=== PATIENT | female | born 1995 | race Two or more races ===

== ENCOUNTER 2024-07-27 21:50 | Emergency (ER) | payer MEDICAID, SELFPAY ==
--- NOTE | 2024-07-27 22:09 | PC.NURSE ---
PATIENT AND MOTHER STATED THAT IT WAS TOO BUSY IN THE ER TODAY AND THAT SHE WILL COME BACK TOMORROW MORNING. PATIENT DOES NOT APPEAR TO BE IN DISTRESS, AMBULATING WITHOUT DIFFICULTY, AND ACCOMPANIED BY MOTHER. PATIENT SEEN WALKING OUT OF ER.
--- NOTE | 2024-07-27 22:41 | PC.NURSE ---
pt did not answer when name was called and was not found outside.
== END 2024-07-27 22:41 | disposition left against medical advice (07) ==
PROVIDERS: Emergency Provider Emergency Medicine
DX: Z53.21 Procedure and treatment not carried out due to patient leaving prior to being seen by health care provider (principal)

== ENCOUNTER 2024-12-08 14:46 | Emergency (ER) | payer MEDICAID, SELFPAY ==
[2024-12-08 14:51] VITALS: BP 151/93; PULSE 90; RESP 18; TEMP 36.8; O2SAT 95
[2024-12-08 15:38] LABS: HCG Qualitative,Urine Negative
--- NOTE | 2024-12-08 15:53 | EDNOTE_ITS ---
ED OB Contraction Preg RMI/HPI General Chief complaint: Vaginal Bleeding Stated complaint: VAG BLEEDING Time Seen by Provider: 12/08/24 14:50 Arrival date/time: 12/08/24 14:46 29-year-old female with no significant medical problems presents to the emergency department for complaints of vaginal bleeding. Patient believes she may have scratched herself when she was wiping after using the restroom. Limitations: no limitations Related Data Previous Rx's ?Medication ?Instructions ?Recorded ibuprofen 800 mg tablet 800 mg PO Q6H PRN pain #30 t abs 04/19/19 hydroxyzine HCl 25 mg tablet 25 mg PO QID PRN Itching and/or 08/07/21 rash #30 tabs prednisone 20 mg tablet See Rx Instructions .Route 1 10/08/20 .COMPLEX #8 tabs ibuprofen 800 mg tablet 800 mg PO TID PRN pain #30 t abs 01/16/22 ondansetron 4 mg disintegrating 4 mg PO Q6H PRN nausea and 01/16/22 tablet vomiting #14 tabs dicyclomine 20 mg tablet 20 mg PO TID PRN abdominal p ain 11/02/23 #14 tabs Allergies Allergy/AdvReac Type Severity Reaction Status Date / Time No Known Allergies Allergy Verified 08/07/21 11:38 Review of Systems Review of Systems Systems Reviewed: All systems reviewed, normal except as documented Constitutional Constitutional: Reports system reviewed and no additional complaints, except as documented, Denies fever(s) and Denies headache(s) Eyes Eyes: Reports system reviewed and no additional complaints, except as documented and Denies blurry vision ENT Ears, Nose, Mouth, and Throat: Reports system reviewed and no additional complaints, except as documented, Denies headache(s), Denies nasal congestion and Denies nasal discharge Cardiovascular Cardiovascular: Reports system reviewed and no additional complaints, except as documented, Denies chest pain and Denies dyspnea Respiratory Respiratory: Reports system reviewed and no additional complaints, except as documented, Denies chest congestion, Denies cough and Denies dyspnea Gastrointestinal Gastrointestinal: Reports system reviewed and no additional complaints, except as documented and Denies abdominal pain Genitourinary Genitourinary: Reports system reviewed and no additional complaints, except as documented and Reports abnormal vaginal bleeding Integumentary/Breasts Skin/Breast: Reports system reviewed and no additional complaints, except as documented and Denies rash Neurologic Neurologic: Reports system reviewed and no additional complaints, except as documented, Reports as per HPI and Denies headache(s) Past Medical History Past Medical History CARDIAC: Positive Hypertension; Negative Cardiac Disorders or Congestive Heart Failure RESPIRATORY: Negative Chronic Obstructive Pulmonary Disease (COPD) or Asthma GENITOURINARY: Negative Renal Disease ENDOCRINE: Positive Diabetes Mellitus Type 2; Negative Diabetes Mellitus Type 1 HEMATOLOGIC: Negative Sickle Cell Disease Family History FAMILY HISTORY: Positive Family Cardiac Disorders Social History SMOKING STATUS: Never smoker ED Exam General Limitations: Present no limitations General appearance: Present alert and in no apparent distress Head Head exam: Present atraumatic Eye Eye exam: Present normal appearance, PERRL and EOMI ENT ENT exam: Present normal exam, normal oropharynx and mucous membranes moist Neck Neck exam: Present normal inspection, full ROM and trachea midline Chest Chest inspection: Present normal inspection and symmetric chest wall rise Respiratory Respiratory exam: Present normal lung sounds bilaterally Cardiovascular Cardiovascular exam: Present regular rate, normal rhythm and normal heart sounds Abdominal Exam Abdominal exam: Present soft and normal bowel sounds; Absent distention, tenderness, guarding, rebound or rigidity Extremities Exam Extremities exam: Present normal inspection and full ROM Back Exam Back exam: Present normal inspection and full ROM Neurological Exam Neurological exam: Present alert, oriented X3 and CN II-XII intact Psychiatric Psychiatric exam: Present normal affect and normal mood Skin Skin exam: Present warm, dry, intact and normal color Course Quality Measures none Orders Category Date Time Status HCG Qualitative,Urine Stat Lab 12/08/24 15:19 Completed Vital Signs Vital signs: Vital Signs Temperature 98.2 F 12/08/24 14:51 Pulse Rate 90 12/08/24 14:51 Respiratory Rate 18 12/08/24 14:51 Blood Pressure 151/93 H 12/08/24 14:51 Pulse Oximetry (%) 95 12/08/24 14:51 Oxygen Delivery Method Room Air 12/08/24 14:51 O2 saturation 95% on room air WNL Vaginal Bleeding MDM Narrative MDM Narrative: 29-year-old female with no significant medical problems presents to the emergency department for complaints of vaginal bleeding. Patient believes she may have scratched herself when she was wiping after using the restroom. With a female hyperion analyst with the utmost respect to examine the patient's vaginal region patient appears to have no active bleeding no lacerations. Patient appears to be on her period Patient checked for which came back negative Patient discharged home in no distress to follow-up with primary care doctor in the next 24 to 48 hours and for any worsening symptoms to return to the ER immediately Patient data External records reviewed:: [facility] previous records Clinical information provided by:: patient Social determinants that could affect healthcare access:: none Patient has the following chronic illnesses:: None How is presenting disease/condition affected by chronic disease/condition?: no chronic disease Evaluation data The following diagnostics were reviewed and interpreted by me:: lab results Lab and/or radiology exams considered but not ordered:: Ordered Interpretation Summary: Reviewed by me Medications / Prescriptions Medications or Prescriptions considered but not ordered:: No meds Medication administrations:: No meds Consultations Consultation(s) initiated? (list below): No Diagnosis Vaginal Bleeding Differential Diagnosis: missed and threatened Most likely diagnosis given after review of the tests above:: Dysfunctional uterine bleeding Admission Indicated Admission indicated?: not indicated Admission Request Was there a request for admission?: No Disposition Plan Disposition Plan: Discharge Discharge Attestation Discharge Attestation: The patient and all family members were given an opportunity to ask questions and understood the discharge instructions. Discharge instructions specifically effects, indications for sooner follow up or return to the emergency department, and the expected course of current diagnosis. Patient condition: Stable Discharge Plan Plan Patient Disposition: HOME (Self Care) Disposition Comment: Stable Prescriptions/Referrals Prescriptions/Med Rec: No Action ibuprofen 800 mg tablet 800 mg PO Q6H PRN (Reason: pain) Qty: 30 0RF hydroxyzine HCl 25 mg tablet 25 mg PO QID PRN (Reason: Itching and/or rash) Qty: 30 0RF prednisone 20 mg tablet See Rx Instructions .ROUTE .COMPLEX Qty: 8 0RF Rx Instructions: 2 tabs (40mg) PO QAM x 3 days, then 1 tab (20mg) PO QAM x 2 days ibuprofen 800 mg tablet 800 mg PO TID PRN (Reason: pain) Qty: 30 0RF ondansetron 4 mg tablet,disintegrating 4 mg PO Q6H PRN (Reason: nausea and vomiting) Qty: 14 0RF dicyclomine 20 mg tablet 20 mg PO TID PRN (Reason: abdominal pain) Qty: 14 0RF Referrals: Amish Perez FNP [Primary Care Provider] - In 1 week Problem List Clinical Impression: Vaginal bleeding Patient/Caregiver Discharge Instructions Additional Instructions: Please follow up with your primary care doctor in the next 24-48hrs for any worsening symptoms return here immediately Print Language: Kinyarwanda Stand Alone Forms: Ana Award Info., Patient Portal Info Letter PA/PRODUCT SUPPORT MANAGER Supervising Physician PA/PRODUCT SUPPORT MANAGER Supervising Physician: Dr [email or web address]
== END 2024-12-08 16:30 | disposition home or self-care (01) ==
PROVIDERS: Nurse Practitioner Primary Care; Emergency Provider Emergency Medicine
DX: N93.8 Other specified abnormal uterine and vaginal bleeding (principal)
CPT/HCPCS: 81025; 99283

== ENCOUNTER 2025-03-23 14:21 | Emergency (ER) | payer MEDICAID, SELFPAY ==
[2025-03-23 15:49] VITALS: BP 146/83; PULSE 68; RESP 18; TEMP 36.8; O2SAT 98
--- NOTE | 2025-03-23 16:04 | PD.EDRME ---
Rapid Medical Screening Exam RME Arrival date/time: 03/23/25 14:21 Chief Complaint: Chest Pain Vital signs: Vital Signs Temperature 98.2 F 03/23/25 15:49 Pulse Rate 68 03/23/25 15:49 Respiratory Rate 18 03/23/25 15:49 Blood Pressure 146/83 H 03/23/25 15:49 Pulse Oximetry (%) 98 03/23/25 15:49 Oxygen Delivery Method Room Air 03/23/25 15:49 Pulse ox is 98% room air Vital signs reviewed by provider: Yes RME Narrative: 29-year-old female presents to the ED with a complaint of chest pain that began 2 days ago. Patient tells me chest pain radiates from left of her sternum down to her abdomen.
--- NOTE | 2025-03-23 16:06 | XR_ITS ---
Examination: PA lateral chest 2 views TECHNIQUE: Upright PA lateral chest 2 views Date and time: March 23, 2025 1618 hours Comparison October 24, 2022 INDICATIONS: Chest pain beginning 3 days ago. FINDINGS: Normal heart size Suspicious for early pneumonia right base obscuring detail right hemidiaphragm Left lung clear IMPRESSION: Suspicious for early right base pneumonia
--- NOTE | 2025-03-23 16:06 | EKG_ITS ---
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
[2025-03-23 16:54] LABS: Basophils # (Auto) 0.1 Thou/mm3 (0.0-0.2); Basophils % (Auto) 0 % (0-2.5); Eosinophils # (Auto) 0.3 Thou/mm3 (0.0-0.5); Eosinophils % (Auto) 2 % (0-10); Hematocrit 39.9 % (36.0-46.0); Hemoglobin 13.6 g/dL (12.0-16.0); Immature Granulocytes Auto 0.06 Thou/mm3 (0.00-0.00); Lymphocytes # (Auto) 3.5 Thou/mm3 (1.0-4.8); Lymphocytes % (Auto) 22 % (10-50); Mean Corpuscular HGB Conc 34.1 g/dl (31.0-37.0); Mean Corpuscular Hemoglobin 28.7 pg (25.0-35.0); Mean Corpuscular Volume 84 fL (80-100); Monocytes # (Auto) 1.1 Thou/mm3 (0.0-0.8); Monocytes % (Auto) 7 % (0-12); Neutrophils # (Auto) 11.1 Thou/mm3 (1.8-7.7); Neutrophils % (Auto) 69 % (37-80); Nucleated Red Blood Cell # 0.00 Thou/mm3 (0.00-0.00); Nucleated Red Blood Cell % 0 /100 WBC (0); Platelet Count 90 Thou/mm3 (140-440); RDW Standard Deviation 38.1 fL (36.4-46.3); Red Blood Count 4.74 Miln/mm3 (4.00-5.20); White Blood Count 16.0 Thou/mm3 (3.6-11.0)
[2025-03-23 17:13] LABS: B-Type Natriuretic Peptide < 20 pg/mL (0-100)
[2025-03-23 17:18] LABS: Collection Type, Urine Clean Catch
[2025-03-23 17:27] LABS: Alanine Aminotransferase 9 U/L (10-49); Albumin, Serum 4.9 gm/dL (3.5-5.0); Albumin/Globulin Ratio 1.6 (1.2-2.2); Alkaline Phosphatase 105 U/L (46-116); Anion Gap 9 (7-16); Aspartate Amino Transferase 13 U/L (0-34); BUN/Creatinine Ratio 8 Ratio (12-20); Bilirubin,Total 0.4 mg/dL (0.3-1.2); Blood Urea Nitrogen 6 mg/dL (9-23); Calcium 10.6 mg/dL (8.3-10.6); Calcium (Corrected) 10.6 mg/dL (8.5-10.1); Carbon Dioxide 28.2 mMol/L (20.0-31.0); Chloride 102 mMol/L (98-107); Creatinine (Component) 0.8 mg/dL (0.6-1.3); Globulin 3.0 gm/dL (2.3-3.5); Glucose 90 mg/dL (74-106); LDH (Lactate Dehydrogenase) 165 U/L (120-246); Magnesium 1.5 mg/dL (1.6-2.6); Osmolality,Calculated 275 (275-295); Potassium 3.9 mMol/L (3.4-5.1); Sodium 139 mMol/L (136-145); Total Protein 7.9 gm/dL (5.7-8.2); Troponin I < 0.020 ng/mL (0.0-0.045); eGFR > 60 See Note
[2025-03-23 17:44] LABS: Bacteria,Urine 3+; Bilirubin,Urine Negative (Negative); Blood,Urine Negative (Negative); Clarity,Urine Turbid (Clear/Hazy); Color,Urine Lt-Yellow (Lt Yel-Yel); Glucose, Urine Negative (Negative); Ketones,Urine Negative (Negative); Leukocyte Esterase,Urine Negative (Negative); Nitrite,Urine Negative (Negative); PH,Urine 7.5 (5.0-7.0); Protein,Urine Negative (Neg - Trace); RBC,Urine 3 /hpf (0-3); Specific Gravity,Urine 1.020 (1.001-1.035); Squamous Epithelial Cell,Urine 19 /hpf (0-5); Urobilinogen,Urine Negative mg/dL (0.0-1.0); WBC,Urine 1 /hpf (0-5)
[2025-03-23 17:50] LABS: INR 1.0 (0.9-1.3); Partial Thromboplastin Time 31.0 Seconds (22.0-36.0); Prothrombin Time 11.1 Seconds (9.0-12.2)
[2025-03-23 21:15] LABS: Amphetamine/Methamp Scrn,U Negative (Negative); Barbiturate Screen,Urine Negative (Negative); Benzodiazepines Screen,Urine Negative (Negative); Benzoylecgonine Screen, Ur Negative (Negative); Fentanyl Screen,Urine Negative (Negative); Opiate Screen,Urine Negative (Negative); THC Screen,Urine Positive (Negative)
[2025-03-23 21:45] LABS: Troponin I < 0.020 ng/mL (0.0-0.045)
--- NOTE | 2025-03-23 22:53 | EDNOTE_ITS ---
ED General RME/HPI General Chief complaint: Chest Pain Stated complaint: CHEST & BACK PAIN X 3 DAYS Arrival date/time: 03/23/25 14:21 RME / HPI RME / HPI narrative: 29-year-old female presents to the ED with a complaint of chest pain that began 2 days ago. Patient tells me chest pain radiates from left of her sternum down to her abdomen. 29-year-old female with no relevant past medical history comes into the ED with chief complaint of chest pain that radiates to her back. Patient also mentioned that she sometimes is having some shortness of breath and that her father found her crying overnight in her room. Patient mentions that she does have some acid reflux. Denies having any trauma or falls. Patient also stated that she has not had any nausea, vomiting, burning sensation urination, changes in bowel, headaches, or changes in vision. Otherwise she has no other complaints. Related Data Previous Rx's ?Medication ?Instructions ?Recorded ibuprofen 800 mg tablet 800 mg PO Q6H PRN pain #30 t abs 04/19/19 hydroxyzine HCl 25 mg tablet 25 mg PO QID PRN Itching and/or 08/07/21 rash #30 tabs prednisone 20 mg tablet See Rx Instructions .Route 1 10/08/20 .COMPLEX #8 tabs ibuprofen 800 mg tablet 800 mg PO TID PRN pain #30 t abs 01/16/22 ondansetron 4 mg disintegrating 4 mg PO Q6H PRN nausea and 01/16/22 tablet vomiting #14 tabs dicyclomine 20 mg tablet 20 mg PO TID PRN abdominal p ain 11/02/23 #14 tabs omeprazole 20 mg capsule,delayed 20 mg PO QDAY PRN Aci d reflux #20 03/23/25 release caps Allergies Allergy/AdvReac Type Severity Reaction Status Date / Time No Known Allergies Allergy Verified 03/23/25 14:24 Review of Systems Review of Systems Systems Reviewed: All systems reviewed, normal except as documented Past Medical History Past Medical History CARDIAC: Positive Hypertension; Negative Cardiac Disorders or Congestive Heart Failure RESPIRATORY: Negative Chronic Obstructive Pulmonary Disease (COPD) or Asthma GENITOURINARY: Negative Renal Disease ENDOCRINE: Positive Diabetes Mellitus Type 2; Negative Diabetes Mellitus Type 1 HEMATOLOGIC: Negative Sickle Cell Disease Family History FAMILY HISTORY: Positive Family Cardiac Disorders Social History SMOKING STATUS: Never smoker ED Exam Narrative Physical exam: Gen: A&O X 3, NAD HEENT: NCAT, EOMI, Pupils reactive VINITA, not icteric. External ears normal. No rhinorrhea. Moist mucous membranes. Neck: Supple, full range of motion, no observable masses, No meningeal sign. Lungs: No Respiratory distress, clear bilateral. CV: RRR, no murmurs. Abdomen: Soft, nondistended, No rebound tenderness. MSK: No joint swelling, no redness, peripheral pulses presents, lumbar with no edema. Mild tenderness with palpation Skin: No rashes, petechiae, lesions.. Neuro: No focal neurological deficits appreciated, sensory and motor intact. Psych: Cooperative, appropriate mood and effect. Course Quality Measures none Orders Category Date Time Status EKG (ED ONLY) *Do not use* NOW Care 03/23/25 16:06 Completed EKG (ED Only) Stat Exams 03/23/25 16:06 Draft XR chest 2V Stat Exams 03/23/25 16:06 Completed B-Type Natriuretic Peptide Stat Lab 03/23/25 16:23 Completed CBC Stat Lab 03/23/25 16:23 Completed Comprehensive Metabolic Panel Stat Lab 03/23/25 16:23 Completed Drug Screen,Urine Stat Lab 03/23/25 17:05 Completed LDH (Lactate Dehydrogenase) Stat Lab 03/23/25 16:23 Completed Magnesium Stat Lab 03/23/25 16:23 Completed Partial Thromboplastin Time Stat Lab 03/23/25 16:23 Completed Prothrombin Time with INR Stat Lab 03/23/25 16:23 Completed Troponin I Stat Lab 03/23/25 16:23 Completed Troponin I Stat Lab 03/23/25 21:08 Completed Urinalysis Stat Lab 03/23/25 17:05 Completed Vital Signs Vital signs: Vital Signs Temperature 98.2 F 03/23/25 15:49 Pulse Rate 68 03/23/25 15:49 Respiratory Rate 18 03/23/25 15:49 Blood Pressure 146/83 H 03/23/25 15:49 Pulse Oximetry (%) 98 03/23/25 15:49 Oxygen Delivery Method Room Air 03/23/25 15:49 Discharge Plan Plan Patient Disposition: HOME (Self Care) Prescriptions/Referrals Prescriptions/Med Rec: New omeprazole 20 mg capsule,delayed release(DR/EC) 20 mg PO QDAY PRN (Reason: Acid reflux ) Qty: 20 0RF No Action ibuprofen 800 mg tablet 800 mg PO Q6H PRN (Reason: pain) Qty: 30 0RF hydroxyzine HCl 25 mg tablet 25 mg PO QID PRN (Reason: Itching and/or rash) Qty: 30 0RF prednisone 20 mg tablet See Rx Instructions .ROUTE .COMPLEX Qty: 8 0RF Rx Instructions: 2 tabs (40mg) PO QAM x 3 days, then 1 tab (20mg) PO QAM x 2 days ibuprofen 800 mg tablet 800 mg PO TID PRN (Reason: pain) Qty: 30 0RF ondansetron 4 mg tablet,disintegrating 4 mg PO Q6H PRN (Reason: nausea and vomiting) Qty: 14 0RF dicyclomine 20 mg tablet 20 mg PO TID PRN (Reason: abdominal pain) Qty: 14 0RF Referrals: No Primary/Family,Physician [Primary Care Provider] - In 1 week Problem List Clinical Impression: Acid reflux Patient/Caregiver Discharge Instructions Other Activity Instructions:: Follow-up primary care physician within 1 to 2 days You have been prescribed omeprazole 20 mg daily as needed for acid reflux. You can take Tylenol every 6 hours as needed for pain for the next 2 or 3 days Come back to the ED if symptoms persist or worsen. Education Materials: Anatomy of the Digestive System, GERD Dc, ED GERD (Adult) Print Language: German Stand Alone Forms: Ana Award Info., Work/School Release, Patient Portal Info Letter MDM Narrative MDM hospital course: Patient was seen and evaluated upon arrival to the room by myself. Diagnostic labs and imaging were reviewed. Patient's troponins were negative and EKG was unremarkable. Labs that show a mild elevation of WBC and UA containing 3+ bacteria, but patient at this time is asymptomatic. Chest x-ray was read as pneumonia, but at this time disagree with findings as patient also does not have any symptoms of cough, fevers, or phlegm production. Heart score was 0 At this time patient is stable enough to be discharged home. Prescribed omeprazole 20 mg daily as needed for acid reflux. Patient agrees with plan. Case disclosed with Attending Dr. Willie Rios PGY2 Disclaimer: Even though this this note was dictated by speech recognition and even though it was carefully revised there may still be minor errors in cloth examiner machine due to voice recognition software.
== END 2025-03-23 23:00 | disposition home or self-care (01) ==
PROVIDERS: Physician Assistant; Emergency Provider Family Medicine
DX: K21.9 Gastro-esophageal reflux disease without esophagitis (principal)
CPT/HCPCS: 36415; 71046; 80053; 80307; 81001; 83615; 83735; 83880; 84484; 85025; 85610; 85730; 93005; 99284